=== PATIENT | female | born 1945 ===

== ENCOUNTER 2023-10-17 11:42 | Outpatient (REF) | payer SELFPAY ==
[2023-10-17 11:56] LABS: Appearance Urine Cloudy; Color Urine Yellow; Glucose Urine UA Negative (Negative); Leukocyte Esterase Urine Large (3+) (Negative); Nitrite Urine Negative (Negative); UMIC TRIGGER UA YES; Urine Blood Negative (Negative); Urine Ketones Negative (Negative); Urine Protein Negative (Neg-Trace)
[2023-10-17 12:07] LABS: Bacteria Urine 4+ (None Seen); Hyaline Casts Urine 0-2 /LPF (0-2); Other Crystals Urine Present; WBC Urine >50 /HPF (0-5)
[2023-10-17 12:08] LABS: RBC Urine 0-2 /HPF (0-2)
== END 2023-10-17 11:43 | disposition home or self-care (01) ==
LOC: HO.HVNA 11:42
PROVIDERS: Visit Provider Internal Medicine
DX: N39.0 Urinary tract infection, site not specified (principal)
CPT/HCPCS: 81001; 87086